=== PATIENT | female | born 1975 | race Caucasian/White ===

== ENCOUNTER 2019-07-02 10:41 | Outpatient (CLI) | payer OTHER, SELFPAY ==
--- NOTE | ~2019-07-02 | MMUS_ITS ---
EXAMINATION: MM screen RT diag LT w meagan, US breast BI limited, MM diagnostic mammo unilat RT HISTORY: Palpable lump of the lower inner left breast TECHNIQUE: Craniocaudal, mediolateral, and mediolateral oblique 3-D tomosynthesis images of the breas ts were performed and synthetic 2-D images were generated. And spot compression views of the breasts were also obtained. CAD analysis was submitted and interpreted. High resolution limited bilateral rodrigo ast ultrasound was performed. COMPARISON: None, baseline BREAST PARENCHYMAL COMPOSITION: There are scattered areas of fibroglandular density. FINDINGS: MAMMOGRAPHIC FINDINGS: Left breast: There is a 1.4 x 0.9 cm irregular, spiculated, high density mass in the anterior third o f the breast at the 8:00 location 3 cm from the nipple corresponding to the palpable abnormality of c oncern. There is associated skin retraction overlying the mass. Right breast: There is a 6 mm x 5 mm oval, circumscribed, equal density mass in the middle third of t he inner breast at the 3:00 location 6 cm from the nipple ULTRASOUND: Left breast: There is a 1.3 x 0.9 cm irregular, parallel, hypoechoic mass with angular and spiculated margins at the 8:00 location 3 cm from the nipple corresponding to the palpable abnormality of lei rn. The mass demonstrates posterior acoustic shadowing and some peripheral vascularity. IMPRESSION: 1. Highly suspicious left breast mass corresponding to the palpable abnormality of concern and suspic ious right breast mass. 2. Bilateral ultrasound guided biopsy is recommended. BI-RADS category 5, highly suggestive of malignancy. Reviewed, dictated and finalized at location A. [employer] IMPRESSION: 1. Highly suspicious left breast mass corresponding to the palpable abnormality of concern and suspicious right breast mass. 2. Bilateral ultrasound guided biopsy is recommended. BI-RADS category 5, highly suggestive of malignancy. IMPRESSION: 1. Highly suspicious left breast mass corresponding to the palpable abnormality of concern and suspicious right breast mass. 2. Bilateral ultrasound guided biopsy is recommended. BI-RADS category 5, highly suggestive of malignancy.
== END 2019-07-02 10:42 | disposition home or self-care (01) ==
PROVIDERS: PCP Physician Assistant
DX: Z12.31 Encounter for screening mammogram for malignant neoplasm of breast (principal); R92.8 Other abnormal and inconclusive findings on diagnostic imaging of breast
CPT/HCPCS: 76642; 77063; 77065; 77067

== ENCOUNTER 2021-01-18 15:35 | Emergency (ER) | payer OTHER, SELFPAY ==
[2021-01-18 15:39] VITALS: BP 123/70; PULSE 110; RESP 19; TEMP 37.4; O2SAT 100
--- NOTE | 2021-01-18 17:38 | ED.EYEPROB ---
HPI - Eye Problem General Chief complaint: Eye Problems Stated complaint: eye swelling Time Seen by Provider: 01/18/21 16:16 Source: patient Mode of arrival: ambulatory Limitations: no limitations History of Present Illness HPI Narrative: Patient is a 45-year-old female complaining of left lower eyelid redness and swelling that started today. Patient denies any visual disturbance. Patient denies any discharge to the area. Patient denies any injury. Patient has no other complaints. Related Data Home Medications Medication Instructions Recorded Confirmed tamoxifen mg 01/18/21 Allergies Allergy/AdvReac Type Severity Reaction Status Date / Time acetaminophen [From Vicodin] Allergy Anaphylaxis Verified 01/18/21 15:42 hydrocodone [From Vicodin] Allergy Anaphylaxis Verified 01/18/21 15:42 Review of Systems Review of Systems: All systems reviewed & are unremarkable except as noted in HPI and below PMFSH Comments Past medical history: None Family history: Noncontributory Social history non-smoker no EtOH or drug use Exam Eyes: Conjunctivae: conjunctivae normal Pupils: Equal, round and reactive pupils present EOM: EOMs intact bilaterally Direct Ophthalmoscopy: no photophobia Other: Positive for external hordeolum left lower eyelid Course Vital Signs Vital signs: Vital Signs Temperature 37.4 C 01/18/21 15:39 Pulse Rate 110 H 01/18/21 15:39 Respiratory Rate 19 01/18/21 15:39 Blood Pressure 123/70 01/18/21 15:39 Pulse Oximetry 100 01/18/21 15:39 Temperature 37.4 C 01/18/21 15:39 Pulse Rate 110 H 01/18/21 15:39 Respiratory Rate 19 01/18/21 15:39 Blood Pressure 123/70 01/18/21 15:39 Pulse Oximetry 100 01/18/21 15:39 Discharge Plan Discharge Clinical Impression: External hordeolum Qualifiers: Laterality: left Eyelid: lower Qualified Code(s): H00.015 - Hordeolum externum left lower eyelid Patient Disposition: Home, Self-Care Condition: Stable Instructions: Kristen Bolaños (ED) Prescriptions: New erythromycin 5 mg/gram (0.5 %) ointment 0.5 inch EACH EYE QID 7 Days Qty: 50 RF: 0 No Action tamoxifen 20 mg tablet RF: 0 Follow-up/Referrals: Tammy,ISMAEL Peñaloza [Primary Care Provider] - 01/19/21 Time of Disposition: 17:42
[2021-01-18] MEDS: ERYTHROMYCIN OPHTH OINTMENT 1 GM TUBE 1 APPLIC EACH EYE (17:46)
== END 2021-01-18 18:23 | disposition home or self-care (01) ==
PROVIDERS: Emergency Provider Emergency Medicine; PCP Physician Assistant
DX: H00.015 Hordeolum externum left lower eyelid (principal)
CPT/HCPCS: 99283; A9270

== ENCOUNTER 2021-01-30 09:49 | Emergency (ER) | payer OTHER, SELFPAY ==
--- NOTE | ~2021-01-30 | US_ITS ---
EXAMINATION: US venous doppler LE RT DATE: 01/30/2021 10:17 INDICATION: Right lower limb pain TECHNIQUE: Herrmann scale images without and with compression and Doppler images of the right lower extre mity veins were obtained. COMPARISON: None FINDINGS: The right common femoral vein, profunda femoral vein, femoral vein, popliteal vein, peronea l trunk, posterior tibial veins, and greater saphenous vein are patent. The soft tissues in the area of palpable concern are unremarkable. IMPRESSION: 1. Patent right lower extremity veins. No evidence of deep venous thrombosis. No ultrasound correlate for the patient's pain. Reviewed, dictated and finalized at location B. IMPRESSION: 1. Patent right lower extremity veins. No evidence of deep venous thrombosis. N o ultrasound correlate for the patient's pain.
[2021-01-30 10:02] VITALS: BP 158/93; PULSE 101; RESP 22; TEMP 37.7; O2SAT 100
[2021-01-30 10:41] VITALS: BP 101/75; PULSE 84; RESP 18; TEMP 35.7; O2SAT 99
--- NOTE | 2021-01-30 10:44 | PC.NURSE ---
[id number] attempted to triage, [facility]
[2021-01-30 11:07] VITALS: BP 123/82; PULSE 81; RESP 14; O2SAT 98
--- NOTE | 2021-01-30 11:55 | ED.GENADULT ---
HPI - General Adult General Chief complaint: Extremity Problem,Nontraumatic Stated complaint: right lower leg pain, r/o DVT Time Seen by Provider: 01/30/21 11:22 History of Present Illness HPI narrative: Patient is a 45-year-old female who presents the ER with asymmetric swelling of right lower extremity over the strange laterally. Patient has history of breast cancer with bilateral mastectomy and is not currently receiving treatment. She has history of chronic lower extremity edema which has not increased. She has had a mild amount of discomfort over her swelling. No long distance travel or recent trauma. Denies fevers or chills or sweats. No redness to her skin. No numbness or tingling. She is without any chest pain/shortness of breath. Related Data Home Medications Medication Instructions Recorded Confirmed tamoxifen mg 01/18/21 Allergies Allergy/AdvReac Type Severity Reaction Status Date / Time acetaminophen [From Vicodin] Allergy Anaphylaxis Verified 01/18/21 15:42 hydrocodone [From Vicodin] Allergy Anaphylaxis Verified 01/18/21 15:42 Review of Systems Review of Systems: All systems reviewed & are unremarkable except as noted in HPI and below Constitutional: Constitutional: Denies chills, Denies fever(s) and Denies weakness Cardiovascular: Cardiovascular: Denies chest pain and Denies radiating jaw, neck or arm pain Respiratory: Respiratory: Denies cough and Denies dyspnea Musculoskeletal: Musculoskeletal: Denies arthralgias, Denies joint swelling and Denies muscle cramps Neurologic: Denies focal weakness and Denies numbness PMFSH Surgical History Surgical History (Updated 01/30/21 @ 11:57 by Jd Woodson MD) History of mastectomy Social History Social History (Updated 01/30/21 @ 11:57 by Jd Woodson MD) Smoking status: Never smoker Exam Narrative: GENERAL: Well-appearing, well-nourished, and in no acute distress. HEAD: Normocephalic, atraumatic. HEART: Regular rate and rhythm. Normal peripheral pulses. EXTREMITIES: Normal range of motion. Trace edema. Negative Homans' sign bilaterally. SKIN: Warm, dry, no rash. NEURO: Alert and oriented x3. PSYCH: Normal mood and affect. Course Course Emergency Course: Unremarkable leg exam with negative venous Doppler. Patient given reassurance. Discharge home. Recommend ibuprofen and ice. Vital Signs Vital signs: Vital Signs Temperature 99.9 F H 01/30/21 10:02 Pulse Rate 101 H 01/30/21 10:02 Respiratory Rate 22 H 01/30/21 10:02 Blood Pressure 158/93 H 01/30/21 10:02 Pulse Oximetry 100 01/30/21 10:02 Temperature 96.2 F L 01/30/21 10:41 Pulse Rate 81 01/30/21 11:07 Respiratory Rate 14 01/30/21 11:07 Blood Pressure 123/82 01/30/21 11:07 Pulse Oximetry 98 01/30/21 11:07 Medical Decision Making Vital Signs Vital Signs: Vital Signs Temperature 99.9 F H 01/30/21 10:02 Pulse Rate 101 H 01/30/21 10:02 Respiratory Rate 22 H 01/30/21 10:02 Blood Pressure 158/93 H 01/30/21 10:02 Pulse Oximetry 100 01/30/21 10:02 Temperature 96.2 F L 01/30/21 10:41 Pulse Rate 81 01/30/21 11:07 Respiratory Rate 14 01/30/21 11:07 Blood Pressure 123/82 01/30/21 11:07 Pulse Oximetry 98 01/30/21 11:07 Imaging Data Radiologist's impression: ITS Impressions Venous Doppler Study 01/30/21 10:18 IMPRESSION: 1. Patent right lower extremity veins. No evidence of deep venous thrombosis. No ultrasound correlate for the patient's pain. Discharge Plan Discharge Clinical Impression: Pain in right strange Patient Disposition: Home, Self-Care Condition: Stable Instructions: Leg Pain (ED) Additional Instructions: Return the ER if you have chest pain or shortness of breath, you lose consciousness, you cannot keep down food or water, you have additional concerns. Prescriptions: No Action tamoxifen 20 mg tablet RF: 0 erythromycin 5 mg/gram (0.5 %)
[2021-01-30 12:20] VITALS: BP 105/71; PULSE 81; RESP 16; O2SAT 100
== END 2021-01-30 12:21 | disposition home or self-care (01) ==
PROVIDERS: Emergency Provider Emergency Medicine; PCP Physician Assistant
DX: M79.661 Pain in right lower leg (principal); Z85.3 Personal history of malignant neoplasm of breast; Z90.13 Acquired absence of bilateral breasts and nipples
CPT/HCPCS: 93971; 99284